=== PATIENT | male | born 1985 | race Hispanic/Latino ===

== ENCOUNTER 2018-08-22 07:36 | Emergency (ER) | payer SELFPAY ==
[2018-08-22 08:13] LABS: Absolute Lymphocytes (CBC) 2.5 K/uL (0.7-4.9); Absolute Monocytes 0.6 K/uL (0.1-1.3); Absolute Neutrophil 5.4 K/uL (1.8-8.0); Basophils % 0.3 % (0-1.3); Eosinophils % 4.5 % (0-4.4); Lymphocytes % 27.8 % (15.3-44.8); MPV 10.9 fL (7.6-11.3); Monocytes % 6.4 % (3.3-12.3); RBC Red Blood Cell Count 5.55 M/uL (4.33-5.43)
[2018-08-22 08:26] LABS: Protime INR 1.13
--- NOTE | 2018-08-22 08:34 | RAD REPORT ---
EXAM DESCRIPTION: RAD - Chest Single View - 08/22/2018 8:22 am CLINICAL HISTORY: CHEST PAIN Chest pain. COMPARISON: No comparisons FINDINGS: Portable technique limits examination quality. The lungs are grossly clear. The heart is normal in size. No displaced fractures. IMPRESSION: No acute intrathoracic process suspected.
[2018-08-22 08:38] LABS: Lipase 104 U/L (73-393); NT PRO-BNP 10 pg/mL (<125)
[2018-08-22 08:40] LABS: ALT/SGPT 99 U/L (12-78); AST/SGOT 40 U/L (15-37); Albumin 3.6 g/dL (3.4-5.0); Alkaline Phosphatase 105 U/L (45-117); BUN Blood Urea Nitrogen 11 mg/dL (7-18); Bicarbonate 28 mmol/L (21-32); Bilirubin Direct 0.1 mg/dL (0-0.2); Bilirubin Total 0.5 mg/dL (0.2-1.0); Glucose Level 153 mg/dL (74-106); Magnesium 2.1 mg/dL (1.8-2.4); Potassium 3.7 mmol/L (3.5-5.1); Protein, Total 7.5 g/dL (6.4-8.2); Sodium Level 139 mmol/L (136-145); Troponin (Emerg Dept Use Only) < 0.02 ng/mL (0.0-0.045)
--- NOTE | 2018-08-22 10:02 | EKG ---
Test Date: 2018-08-22 Test Time: 07:47:16 Freight Claim Investigator: HIGINIO MEASUREMENT RESULTS: Intervals: Rate: 69 HI: 170 QRSD: 100 QT: 400 QTc: 428 [place]: P: 44 HI: 170 QRS: 16 T: 43 INTERPRETIVE STATEMENTS: Normal sinus rhythm Normal ECG No previous ECG available for comparison Electronically Signed On 08-22-18 09:29:32 CDT by Shreyas Montes
--- NOTE | 2018-08-22 10:54 | ER ---
Nurse's Notes 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 Transition of care: patient was not received from another setting of care. Onset of symptoms was August 22, 2018. Risk Assessment: Do you want to hurt yourself or someone else? Patient reports no desire to harm self or others. Initial Sepsis Screen: Does the patient meet any 2 criteria? No. Patient's initial sepsis screen is negative. Does the patient have a suspected source of infection? No. Patient's initial sepsis screen is negative. Care prior to arrival: Medication(s) given: ASA, 81 mg, x 4, Nitroglycerin, 0.4 mg SL x 1, IV initiated. 20 GA, in the right antecubital area, Glucose check: 193 Oxygen administered. via nasal cannula. 07:46 Method Of Arrival: EMS: [facility] ph 07:46 Acuity: BENTLEY 3 ph Historical: - Allergies: 07:55 No Known Allergies; ph - Home Meds: 07:55 None [Active]; ph - PMHx: 07:55 None; ph - PSHx: 07:55 None; ph - Immunization history:: Adult Immunizations unknown. - Social history:: Smoking status: Patient uses tobacco products, smokes one-half pack cigarettes per day, Patient/guardian denies using alcohol. - Ebola Screening: : No symptoms or risks identified at this time. - Family history:: not pertinent. Screenin:00 Abuse screen: Denies threats or abuse. Denies injuries from another. Nutritional ph screening: No deficits noted. Tuberculosis screening: No symptoms or risk factors identified. Fall Risk None identified. Assessment: 07:56 General: Appears in no apparent distress. comfortable, obese, well groomed, Behavior is ph calm, cooperative, appropriate for age, Denies fever, feeling ill. Pain: Complains of pain in anterior aspect of left upper chest and left breast Pain does not radiate. Pain currently is 3 out of 10 on a pain scale. at worst was 7 out of 10 on a pain scale. Pain began 2-3 days ago. Is intermittent. Neuro: Level of Consciousness is awake, alert, obeys commands, Oriented to person, place, time, situation. Cardiovascular: Reports chest pain, palpitations, shortness of breath, Denies diaphoresis, lightheadedness, nausea, syncope, vomiting, Capillary refill < 3 seconds in bilateral fingers Patient's skin is warm and dry. Rhythm is sinus rhythm Chest pain is located in left anterior chest wall began approx 4 days ago episodes are intermittent. Respiratory: Airway is patent Respiratory effort is even, unlabored, Respiratory pattern is regular, symmetrical. GI: No signs and/or symptoms were reported involving the gastrointestinal system. Patient currently denies abdominal pain, nausea, vomiting. Derm: Skin is intact, is healthy with good turgor, Skin is pink, warm \T\ dry. Musculoskeletal: Circulation, motion, and sensation intact. Range of motion: intact in all extremities. 09:20 Reassessment: Patient appears in no apparent distress at this time. Patient and/or ph family updated on plan of care and expected duration. Pain level reassessed. Patient is alert, oriented x 3, equal unlabored respirations, skin warm/dry/pink. Pt resting comfortably, rates pain 2/10, VSS, co-worker at bedside. 10:17 Reassessment: Patient appears in no apparent distress at this time. Patient and/or ph family updated on plan of care and expected duration. Pain level reassessed. Patient is alert, oriented x 3, equal unlabored respirations, skin warm/dry/pink. Pt resting quietly, VSS, awaiting results of repeat cardiac enzymes. 11:21 Reassessment: Patient appears in no apparent distress at this time. Patient and/or ph family updated on plan of care and expected duration. Pain level reassessed. Patient is alert, oriented x 3, equal unlabored respirations, skin warm/dry/pink. Pt denies pain at this time, instructed to follow up w/ cardiology and d/c home. Vital Signs: 07:54 BP 131 / 85; Pulse 78; Resp 18; Temp 97.2; Pulse Ox 96% on R/A; Weight 136.08 kg; ph Height 6 ft. 0 in. (182.88 cm); Pain 3/10; 09:21 BP 118 / 77; Pulse 66; Resp 18; Pulse Ox 97% on R/A; Pain 2/10; ph 10:18 BP 126 / 97; Pulse 88; Resp 18; Pulse Ox 98% on R/A; ph 11:24 BP 117 / 87; Pulse 78; Resp 18; Temp 97.9; Pulse Ox 98% on R/A; ph 07:54 Body Mass Index 40.69 (136.08 kg, 182.88 cm) ph ED Course: 07:44 Patient arrived in ED. ph 07:49 Jason Campbell MD is Attending Physician. alyssia 07:50 EKG done, by echo vascular technologist. reviewed by Jason Campbell MD. at1 07:54 Triage completed. ph 07:56 Arm band placed on Patient placed in an exam room, on a stretcher, on manager drilling, ph on pulse oximetry. 08:00 X-ray completed. Portable x-ray completed in exam room. Patient tolerated procedure mh1 well. 08:01 No provider procedures requiring assistance completed. Maintain EMS IV. Dressing ph intact. Good blood return noted. Site clean \T\ dry. Gauge \T\ site: 20 RAC. Patient maintains SpO2 saturation greater than 95% on room air. 08:01 Patient has correct armband on for positive identification. Placed in gown. Bed in low ph position. Call light in reach. Side rails up X 1. cable maker on. Pulse ox on. NIBP on. Door closed. Noise minimized. Warm blanket given. Head of bed lowered. 08:11 Initial lab(s) drawn, by me, sent to lab. [email or web address] 08:22 XRAY Chest (1 view) In Process Unspecified. EDMS 09:10 Antonieta Mccarthy RN is Primary Nurse. ph 10:54 Shreyas Montes MD is Referral Physician. alyssia 11:23 IV discontinued, intact, bleeding controlled, No redness/swelling at site. Pressure ph dressing applied. Administered Medications: 08:30 Drug: NS 0.9% 1000 ml Route: IV; Rate: 125 ml/hr; Site: right antecubital; ph 11:23 Follow up: Response: No adverse reaction; IV Status: Completed infusion; IV Intake: ph 375ml 09:28 Not Given (Administered by EMS): Aspirin 81 mg PO once ph Intake: 11:23 IV: 375ml; Total: 375ml. ph Outcome: 10:54 Discharge ordered by . alyssia 11:23 Discharged to home ambulatory. ph 11:23 Condition: good 11:23 Discharge instructions given to patient, Instructed on discharge instructions, follow up and referral plans. Demonstrated understanding of instructions, follow-up care. 11:24 Patient left the ED. ph Signatures: Dispatcher [employer] EDMS Placido Luna [email or web address] Jason Campbell MD MD cha Harvey, Martha 1 Tracey Stark, drafter construction EKG [facility] Antonieta Mccarthy, RN RN ph
--- NOTE | 2018-08-22 10:54 | EDPHYS ---
Physician Documentation [facility] Name: Frankie Condon Age: 33 yrs Sex: Male : 1985 Arrival Date: 08/22/2018 Time: 07:44 Bed 14 Private MD: ED Physician Jason Campbell HPI: 08/22 09:56 This 33 yrs old Male presents to ER via EMS with complaints of Chest Pain. [facility] 09:56 The patient or guardian reports chest pain that is located primarily in the anterior alyssia chest wall, left. The pain does not radiate. Associated signs and symptoms: The patient has no apparent associated signs or symptoms. The chest pain is described as sharp. Duration: The patient or guardian reports multiple episodes, with no pattern. Modifying factors: The symptoms are alleviated by nothing. the symptoms are aggravated by nothing. Severity of pain: At its worst the pain was mild in the emergency department the pain is unchanged. The patient has not experienced similar symptoms in the past. Historical: - Allergies: 07:55 No Known Allergies; ph - Home Meds: 07:55 None [Active]; ph - PMHx: 07:55 None; ph - PSHx: 07:55 None; ph - Immunization history:: Adult Immunizations unknown. - Social history:: Smoking status: Patient uses tobacco products, smokes one-half pack cigarettes per day, Patient/guardian denies using alcohol. - Ebola Screening: : No symptoms or risks identified at this time. - Family history:: not pertinent. ROS: 09:56 Constitutional: Negative for fever, chills, and weight loss, Eyes: Negative for injury, alyssia pain, redness, and discharge, ENT: Negative for injury, pain, and discharge, Neck: Negative for injury, pain, and swelling, Respiratory: Negative for shortness of breath, cough, wheezing, and pleuritic chest pain, Abdomen/GI: Negative for abdominal pain, nausea, vomiting, diarrhea, and constipation, Back: Negative for injury and pain, : Negative for injury, bleeding, discharge, and swelling, MS/Extremity: Negative for injury and deformity, Skin: Negative for injury, rash, and discoloration, Neuro: Negative for headache, weakness, numbness, tingling, and seizure, Psych: Negative for depression, anxiety, suicide ideation, homicidal ideation, and hallucinations, Allergy/Immunology: Negative for hives, rash, and allergies, Endocrine: Negative for neck swelling, polydipsia, polyuria, polyphagia, and marked weight changes, Hematologic/Lymphatic: Negative for swollen nodes, abnormal bleeding, and unusual bruising. 09:56 Cardiovascular: Positive for chest pain, of the left clavicle and anterior aspect of left upper chest. Exam: 09:56 Constitutional: This is a well developed, well nourished patient who is awake, alert, alyssia and in no acute distress. Head/Face: Normocephalic, atraumatic. Eyes: Pupils equal round and reactive to light, extra-ocular motions intact. Lids and lashes normal. Conjunctiva and sclera are non-icteric and not injected. Cornea within normal limits. Periorbital areas with no swelling, redness, or edema. ENT: Nares patent. No nasal discharge, no septal abnormalities noted. Tympanic membranes are normal and external auditory canals are clear. Oropharynx with no redness, swelling, or masses, exudates, or evidence of obstruction, uvula midline. Mucous membranes moist. Neck: Trachea midline, no thyromegaly or masses palpated, and no cervical lymphadenopathy. Supple, full range of motion without nuchal rigidity, or vertebral point tenderness. No Meningismus. Chest/axilla: Normal chest wall appearance and motion. Nontender with no deformity. No lesions are appreciated. Cardiovascular: Regular rate and rhythm with a normal S1 and S2. No gallops, murmurs, or rubs. Normal PMI, no JVD. No pulse deficits. Respiratory: Lungs have equal breath sounds bilaterally, clear to auscultation and percussion. No rales, rhonchi or wheezes noted. No increased work of breathing, no retractions or nasal flaring. Abdomen/GI: Soft, non-tender, with normal bowel sounds. No distension or tympany. No guarding or rebound. No evidence of tenderness throughout. Back: No spinal tenderness. No costovertebral tenderness. Full range of motion. Male : Normal genitalia with no discharge or lesions. Skin: Warm, dry with normal turgor. Normal color with no rashes, no lesions, and no evidence of cellulitis. MS/ Extremity: Pulses equal, no cyanosis. Neurovascular intact. Full, normal range of motion. Neuro: Awake and alert, GCS 15, oriented to person, place, time, and situation. Cranial nerves II-XII grossly intact. Motor strength 5/5 in all extremities. Sensory grossly intact. Cerebellar exam normal. Normal gait. Psych: Awake, alert, with orientation to person, place and time. Behavior, mood, and affect are within normal limits. 09:56 Musculoskeletal/extremity: DVT Exam: No signs of deep vein thrombosis. no pain, no swelling, no tenderness, negative Homans' sign noted on exam, no appreciated bluish discoloration, no erythema, no increased warmth. Vital Signs: 07:54 BP 131 / 85; Pulse 78; Resp 18; Temp 97.2; Pulse Ox 96% on R/A; Weight 136.08 kg; ph Height 6 ft. 0 in. (182.88 cm); Pain 3/10; 09:21 BP 118 / 77; Pulse 66; Resp 18; Pulse Ox 97% on R/A; Pain 2/10; ph 10:18 BP 126 / 97; Pulse 88; Resp 18; Pulse Ox 98% on R/A; ph 11:24 BP 117 / 87; Pulse 78; Resp 18; Temp 97.9; Pulse Ox 98% on R/A; ph 07:54 Body Mass Index 40.69 (136.08 kg, 182.88 cm) ph MDM: 07:49 Patient medically screened. [facility] 09:59 Data reviewed: vital signs, nurses notes, lab test result(s), EKG, radiologic studies, alyssia plain films. 08/22 07:52 Order name: Basic Metabolic Panel; Complete Time: 09:55 [facility] 08/22 07:52 Order name: CBC with Diff; Complete Time: 09:55 [facility] 08/22 07:52 Order name: LFT's; Complete Time: 09:55 [facility] 08/22 07:52 Order name: Magnesium; Complete Time: 09:55 [facility] 08/22 07:52 Order name: NT PRO-BNP; Complete Time: 09:55 [facility] 08/22 07:52 Order name: PT-INR; Complete Time: 09:55 [facility] 08/22 07:52 Order name: Troponin (emerg Dept Use Only); Complete Time: 09:55 [facility] 08/22 07:52 Order name: XRAY Chest (1 view); Complete Time: 09:55 [facility] 08/22 07:52 Order name: Lipase; Complete Time: 09:55 [facility] 08/22 09:56 Order name: D-Dimer; Complete Time: 10:53 [facility] 08/22 09:56 Order name: Troponin I; Complete Time: 10:53 [facility] 08/22 07:52 Order name: EKG; Complete Time: 07:53 [facility] 08/22 07:52 Order name: Cardiac monitoring; Complete Time: 08:03 [facility] 08/22 07:52 Order name: EKG - Nurse/Tech; Complete Time: 08:03 [facility] 08/22 07:52 Order name: IV Saline Lock; Complete Time: 08: [facility] 08/22 07:52 Order name: Labs collected and sent; Complete Time: 08: [facility] 08/22 07:52 Order name: O2 Per Protocol; Complete Time: 08: [facility] 08/22 07:52 Order name: O2 Sat Monitoring; Complete Time: 08: [facility] Administered Medications: 08:30 Drug: NS 0.9% 1000 ml Route: IV; Rate: 125 ml/hr; Site: right antecubital; ph 11:23 Follow up: Response: No adverse reaction; IV Status: Completed infusion; IV Intake: ph 375ml 09:28 Not Given (Administered by EMS): Aspirin 81 mg PO once ph Disposition: 08/22/18 10:54 Discharged to Home. Impression: Chest pain, unspecified, Tobacco abuse counseling, Tobacco use, Obesity, unspecified. - Condition is Stable. - Discharge Instructions: Nonspecific Chest Pain, Obesity, Adult, Steps to Quit Smoking, Smoking Hazards, Nonspecific Chest Pain, [id number], Aspirin and Your Heart. - Medication Reconciliation Form, Thank You Letter, Antibiotic Education, Prescription Opioid Use, Work release form form. - Follow up: Private Physician; When: 2 - 3 days; Reason: Recheck today's complaints, Continuance of care, Re-evaluation by your physician. Follow up: Shreyas Montes; When: 2 - 3 days; Reason: Recheck today's complaints, Continuance of care, Re-evaluation by your physician. - Problem is new. - Symptoms have improved. Signatures: Dispatcher [employer] EDJason Ramos MD MD cha Hall, Patricia RN RN ph Corrections: (The following items were deleted from the chart) 11:24 10:54 08/22/2018 10:54 Discharged to Home. Impression: Chest pain, unspecified; Tobacco ph abuse counseling; Tobacco use; Obesity, unspecified. Condition is Stable. Discharge Instructions: Nonspecific Chest Pain, Obesity, Adult, Steps to Quit Smoking, Smoking Hazards, Nonspecific Chest Pain, [id number], Aspirin and Your Heart. Forms are Medication Reconciliation Form, Thank You Letter, Antibiotic Education, Prescription Opioid Use. Follow up: Private Physician; When: 2 - 3 days; Reason: Recheck today's complaints, Continuance of care, Re-evaluation by your physician. Follow up: Shreyas Montes; When: 2 - 3 days; Reason: Recheck today's complaints, Continuance of care, Re-evaluation by your physician. Problem is new. Symptoms have improved. alyssia
== END 2018-08-22 11:24 | disposition home or self-care (01) ==
LOC: ER 07:36
DX: R07.9 Chest pain, unspecified (principal); E66.9 Obesity, unspecified; Z71.6 Tobacco abuse counseling; Z72.0 Tobacco use
CPT/HCPCS: 36415; 71045; 80048; 80076; 83690; 83735; 83880; 84484; 85025; 85379; 85610; 93005; 96360; 96361; 99285